=== PATIENT | female | born 2000 | race African-American/Black ===

== ENCOUNTER 2021-11-14 18:21 | Observation (INO) | payer OTHER, MEDICAID, SELFPAY ==
[2021-11-14] VITALS (8 sets, daily range): BP systolic 92–118; BP diastolic 53–81; PULSE 81–112; TEMP 36.7; BMI 26.7
--- NOTE | ~2021-11-14 | US_ITS ---
EXAMINATION: US OB limited w BPP DATE: 11/15/2021 08:14 INDICATION: Oligohydramnios. Third trimester. TECHNIQUE: Real-time pelvic ultrasound was performed. COMPARISON: None. FINDINGS: There is a single living fetus in vertex presentation. The placenta is anterior. heart rate is 150 beats per minute (bpm). The amniotic fluid index is 8.5 cm, which is normal. Biophysical profile performed by the technologist: breathing (30 sec sustained breathing in 30 minutes): 2 out of 2 movement (3 gross body movements in 30 minutes): 2 out of 2 tone (one episode of vawgyzw-ntixltkfs-tmrugvo limb movement): 2 out of 2 Amniotic fluid pocket (2 cm): 2 out of 2 Total score: 8 out of 8 IMPRESSION: 1. Single living fetus in vertex presentation. 2. Biophysical profile 8 out of 8. 3. Normal amniotic fluid index. Reviewed, dictated and finalized at location B.
[2021-11-14 19:37] LABS: Basophils Percent Auto 0.3 % (0.2-1.2); Eosinophils Absolute Auto 0.1 K/mm3 (0-0.3); Eosinophils Percent Auto 1.1 % (0-4.4); Hematocrit 28.7 % (37.0-47.0); Hemoglobin 8.7 g/dL (12.0-15.0); Immature Granulocyte Absolute 0.03 K/mm3 (0.00-0.031); Immature Granulocyte Percent A 0.4 % (0-0.5); Lymphocytes Absolute Auto 2.31 K/mm3 (0.9-3.2); Lymphocytes Percent Auto 30.6 % (18.3-44.2); Mean Corpuscular HGB Conc 30.3 g/dl (32-36); Mean Corpuscular Volume 75.7 fl (80-100); Mean Platelet Volume 10.3 fl (7.4-10.4); Monocytes Absolute Auto 0.7 K/mm3 (0.1-0.6); Monocytes Percent Auto 9.5 % (2.6-8.5); Neutrophils Absolute Auto 4.4 K/mm3 (1.3-6.7); Neutrophils Percent Auto 58.1 % (45.5-73.1); Platelet Count Result 300 k/mm3 (150-375); Red Blood Count 3.79 M/mm3 (4.2-5.4); Red Cell Distribution Width 15.2 % (11.5-14.5); White Blood Count 7.5 K/mm3 (4.5-10.0)
[2021-11-14] MEDS: DEXTROSE 5%/0.45% SOD CHL 1,000 ML 999 ML IV CONT (19:50)
[2021-11-14 19:52] LABS: Alanine Aminotransferase 73 U/L (6-35); Albumin Level 3.7 g/dL (3.5-5.1); Alkaline Phosphatase 193 U/L (38-126); Anion Gap 5 mmol/L (8-16); Aspartate Amino Transferase 64 U/L (14-36); Bilirubin,Total 0.8 mg/dL (0.2-1.3); Blood Urea Nitrogen 5 mg/dL (7-17); Calcium 8.7 mg/dL (8.4-10.2); Carbon Dioxide 21 mmol/L (22-30); Chloride 108 mmol/L (98-107); Estimated Glomerular Filt Rate > 60; Glucose 78 mg/dL (65-110); Potassium 3.7 mmol/L (3.4-5.0); Sodium 134 mmol/L (137-145)
--- NOTE | 2021-11-14 20:06 | OBADM ---
This patient, Trice Robertson, admitted to the OB room OB Post 113 for observation. Patient/family oriented to hospital policies and general routines including ID bracelet, bed and alarms, visiting hours, pain management, procedures, bathroom and other care routines, personal items, smoking policy, room service/diet, and visiting hours. Patient/Family are encouraged to report perceived risks to care and to ask questions if they do not understand what they are told or what they should do.
[2021-11-14] MEDS: LACTATED RINGERS 1,000 ML 150 ML IV CONT (21:01)
--- NOTE | 2021-11-14 21:35 | PC.NURSE ---
Addendum entered by Maria D Bruno RN 11/15/21 01:21: per Dr. Gill- if P/C ratio >0.2- start 24 urine collection. Original Note: 2022- Called Dr. Gill- Labs reviewed- T reviewed. orders received to obtain P/C ratio, [facility] labs in AM, Venofer 300mg infusion. will continue to monitor pt and call if questions/concerns.
[2021-11-14 21:43] LABS: Creatinine Urine 23.4 mg/dL; Total Protein Urine Random 14 mg/dL
--- NOTE | 2021-11-14 22:32 | PC.NURSE ---
2210- called Dr. Gill- labs reviewed. orders received for UA and urine culture. will continue with plan of care and call if questions/concerns.
[2021-11-14 23:00] LABS: Appearance Urine Clear (Clear); Bilirubin Urine Negative (Negative); Color Urine Yellow (Yellow); Glucose Urine UA 2+ mg/dL (Negative); Ketones Urine 2+ mg/dL (Negative); Leukocyte Esterase Ur 1+ LEU/UL (Negative); Nitrate Urine Negative (Negative); Protein Urine Negative (Negative); Urobilinogen Urine 0.2 mg/dL (<2.0)
[2021-11-14 23:02] LABS: Bacteria Urine Trace /hpf; Mucus Urine Rare /lpf; RBC Urine 0-2 /hpf (0-2); Squamous Epithelial Cell Urine Rare /hpf (Few); WBC Urine 0-3 /hpf
[2021-11-14 23:05] LABS: Add Urine Microscopic? YES; Blood Urine Trace-Intact (Negative)
[2021-11-15] VITALS (10 sets, daily range): BP systolic 95–124; BP diastolic 50–85; PULSE 87–111; TEMP 36.4–36.8
--- NOTE | 2021-11-15 01:20 | PC.NURSE ---
pt resting quietly. no complaints at this time.
--- NOTE | 2021-11-15 02:55 | PC.NURSE ---
Dr. Gill updated on pt status and lab results. no new orders received. will continue with plan of care and call if questions/concerns.
[2021-11-15 05:26] LABS: Basophils Percent Auto 0.3 % (0.2-1.2); Eosinophils Absolute Auto 0.1 K/mm3 (0-0.3); Eosinophils Percent Auto 1.3 % (0-4.4); Hematocrit 27.8 % (37.0-47.0); Hemoglobin 8.4 g/dL (12.0-15.0); Immature Granulocyte Absolute 0.04 K/mm3 (0.00-0.031); Immature Granulocyte Percent A 0.6 % (0-0.5); Lymphocytes Absolute Auto 1.54 K/mm3 (0.9-3.2); Lymphocytes Percent Auto 22.4 % (18.3-44.2); Mean Corpuscular HGB Conc 30.2 g/dl (32-36); Mean Corpuscular Hemoglobin 23.1 pg (26-34); Mean Corpuscular Volume 76.4 fl (80-100); Mean Platelet Volume 9.9 fl (7.4-10.4); Monocytes Absolute Auto 0.5 K/mm3 (0.1-0.6); Monocytes Percent Auto 6.7 % (2.6-8.5); Neutrophils Absolute Auto 4.7 K/mm3 (1.3-6.7); Neutrophils Percent Auto 68.7 % (45.5-73.1); Platelet Count Result 279 k/mm3 (150-375); Red Blood Count 3.64 M/mm3 (4.2-5.4); Red Cell Distribution Width 15.3 % (11.5-14.5); White Blood Count 6.9 K/mm3 (4.5-10.0)
[2021-11-15 05:36] LABS: Alanine Aminotransferase 71 U/L (6-35); Albumin Level 3.4 g/dL (3.5-5.1); Alkaline Phosphatase 167 U/L (38-126); Anion Gap 6 mmol/L (8-16); Aspartate Amino Transferase 77 U/L (14-36); Bilirubin,Total 0.8 mg/dL (0.2-1.3); Blood Urea Nitrogen 3 mg/dL (7-17); Calcium 8.8 mg/dL (8.4-10.2); Carbon Dioxide 22 mmol/L (22-30); Chloride 109 mmol/L (98-107); Estimated CRCL calculation 137 ml/min; Estimated Glomerular Filt Rate > 60; Glucose 87 mg/dL (65-110); Potassium 3.6 mmol/L (3.4-5.0); Sodium 137 mmol/L (137-145); Uric Acid 3.1 mg/dL (2.5-7.5)
--- NOTE | 2021-11-15 06:55 | PM.IMHP ---
H&P: HPI History of Present Illness Date/Time: 11/15/21 06:55 Chief Complaint: nausea and vomiting. Narrative: Trice is a 21yo G1 at 36.6 who was admitted last night from the office for a week of N/V. She also had an US yesterday with an GIL of 5.3, was previously 8. BPP yesterday 01/08. Normal growth. has been uncomplicated other than this. Her BPs have always been normal, but she had a PC ratio of 0.6 and mildly elevated LFTs. Denies WHITLOCK/BV/RUQ pain. Denies urinary sx. After fluids her N/V is improved and she is tolerating clears. Review of Systems Review of Systems: All systems reviewed & are unremarkable except as noted in HPI and below (HPI) [facility] Family History Family History (Updated 11/07/21 @ 12:52 by Kat Arteaga RN) Other No pertinent family history Social History Social History Substance use: never Spiritual care concerns: No Meds Home Medications and Allergies Home Medications Medication Instructions Recorded Confirmed Type ferrous sulfate 11/07/21 History prenat.vits,pam,dhw-xwga-spsvg 1 tablet PO DAILY 11/07/21 11/15/21 History Allergies Allergy/AdvReac Type Severity Reaction Status Date / Time No Known Allergies Allergy Verified 11/14/21 23:04 Vital Signs Vital Signs - 24 hr 11/14/21 18:52 11/14/21 19:56 11/14/21 20:00 Temperature Pulse Rate 112 H 87 81 Blood Pressure 116/71 112/66 110/65 Oxygen Delivery 11/14/21 20:15 11/14/21 20:30 11/14/21 20:45 Temperature Pulse Rate 81 101 H 85 Blood Pressure 114/75 105/81 118/71 Oxygen Delivery 11/14/21 23:59 11/15/21 03:12 11/14/21 20:08 Temperature Pulse Rate 103 H 94 Blood Pressure 92/53 L 116/73 Oxygen Delivery Room Air 11/14/21 21:15 11/15/21 00:00 11/15/21 03:12 Temperature 98.1 F 97.8 F 98.3 F Pulse Rate Blood Pressure Oxygen Delivery Exam Const: General: no acute distress Resp: Effort & Inspection: normal respiratory effort Auscultation: clear to auscultation bilaterally Cardio: Rate: regular rate Rhythm: regular rhythm GI: GI Palp: Yes Soft to palpation Extrem: General: normal to inspection H&P: Results Labs Labs: Short CBC 11/14/21 11/15/21 Range/Units 19:22 05:18 WBC 7.5 6.9 (4.5-10.0) K/mm3 Hgb 8.7 L 8.4 L (12.0-15.0) g/dL Hct 28.7 L 27.8 L (37.0-47.0) % Plt Count 300 279 (150-375) k/mm3 [facility] 11/14/21 11/15/21 19:22 05:18 Sodium 134 L 137 Potassium 3.7 3.6 Chloride 108 H 109 H Carbon Dioxide 21 L 22 BUN 5 L 3 L Creatinine 0.50 L 0.50 L Glucose 78 87 Calcium 8.7 8.8 Liver Function 11/14/21 11/15/21 Range/Units 19:22 05:18 Total Bilirubin 0.8 0.8 (0.2-1.3) mg/dL AST 64 H 77 H (14-36) U/L ALT 73 H 71 H (6-35) U/L Alkaline Phosphatase 193 H 167 H (38-126) U/L Albumin 3.7 3.4 L (3.5-5.1) g/dL Urine 11/14/21 Range/Units 21:13 Urine Color Yellow (Yellow) Urine Appearance Clear (Clear) Urine pH 7.0 (5.0-9.0) Ur Specific [place] 1.010 (1.001-1.035) Urine Protein Negative (Negative) mg/dL Urine Glucose (UA) 2+ H (Negative) mg/dL Assessment and Plan Assessment and plan (1) Elevated LFTs: Code(s): R79.89 - Other specified abnormal findings of blood chemistry Status: Acute (2) Nausea and vomiting: Code(s): R11.2 - Nausea with vomiting, unspecified Status: Acute (3) Anemia affecting : Code(s): O99.019 - Anemia complicating , unspecified trimester Status: Acute Additional Plan FHT category 1 Repeat BPP and GIL this am s/p venofer x1, repeat this pm hepatitis panel 24 hour urine in progress discussed possible atypical PreE- will likely be delivering this stay will need cervidil, discussed
[2021-11-15 08:15] LABS: Hepatitis B Surface Antigen Negative (Negative)
[2021-11-15 08:21] LABS: HAV RESULT Negative (Negative); Hepatitis B Core IgM Result Negative (Negative)
[2021-11-15 08:32] LABS: Hepatitis C Virus Antibody Negative (Negative)
--- NOTE | 2021-11-15 18:37 | PC.NURSE ---
pt resting quietly. no complaints.
[2021-11-15 21:37] LABS: Collection Time Urine 24 HOURS
[2021-11-15 21:38] LABS: Total Volume 24 Hour Urine 5200 ml
[2021-11-15 21:47] LABS: Creatinine Clearance Urine 146.9 ml/min (75-125); Creatinine Urine 21.6 mg/dL; Patient Weight 165 Lbs
--- NOTE | 2021-11-15 23:13 | PC.NURSE ---
pt called out asking for snack. snacks taken to pt. pt doing good with no complaints. pt states that baby is very active right now. pt informed to call out if questions/concerns.
[2021-11-16 00:20] VITALS: BP 98/53; PULSE 99
[2021-11-16 04:18] VITALS: BP 103/66; PULSE 75
[2021-11-16 05:20] VITALS: TEMP 36.6
[2021-11-16 05:27] LABS: Basophils Percent Auto 0.5 % (0.2-1.2); Eosinophils Absolute Auto 0.1 K/mm3 (0-0.3); Eosinophils Percent Auto 2.1 % (0-4.4); Hematocrit 26.3 % (37.0-47.0); Immature Granulocyte Absolute 0.02 K/mm3 (0.00-0.031); Immature Granulocyte Percent A 0.3 % (0-0.5); Lymphocytes Absolute Auto 1.74 K/mm3 (0.9-3.2); Lymphocytes Percent Auto 30.2 % (18.3-44.2); Mean Corpuscular HGB Conc 30.4 g/dl (32-36); Mean Corpuscular Hemoglobin 23.1 pg (26-34); Mean Platelet Volume 10.2 fl (7.4-10.4); Monocytes Absolute Auto 0.6 K/mm3 (0.1-0.6); Monocytes Percent Auto 10.7 % (2.6-8.5); Neutrophils Absolute Auto 3.2 K/mm3 (1.3-6.7); Neutrophils Percent Auto 56.2 % (45.5-73.1); Platelet Count Result 266 k/mm3 (150-375); Red Blood Count 3.46 M/mm3 (4.2-5.4); Red Cell Distribution Width 15.5 % (11.5-14.5); White Blood Count 5.8 K/mm3 (4.5-10.0)
[2021-11-16 05:39] LABS: Alanine Aminotransferase 73 U/L (6-35); Albumin Level 3.5 g/dL (3.5-5.1); Alkaline Phosphatase 169 U/L (38-126); Anion Gap 5 mmol/L (8-16); Aspartate Amino Transferase 76 U/L (14-36); Bilirubin,Total 0.6 mg/dL (0.2-1.3); Calcium 8.4 mg/dL (8.4-10.2); Carbon Dioxide 23 mmol/L (22-30); Chloride 108 mmol/L (98-107); Estimated CRCL calculation 166 ml/min; Estimated Glomerular Filt Rate > 60; Glucose 81 mg/dL (65-110); Potassium 3.7 mmol/L (3.4-5.0); Sodium 136 mmol/L (137-145); Uric Acid 3.3 mg/dL (2.5-7.5)
--- NOTE | 2021-11-16 05:57 | PC.NURSE ---
0520- pt resting quietly, no complaints at this time.
[2021-11-16 06:10] LABS: Blood Urea Nitrogen < 2 mg/dL (7-17)
--- NOTE | 2021-11-16 08:53 | P.PNOB_ITS ---
OB - PN: Subj Subjective Date/time seen: 11/16/21 08:53 patient denies any headache, blurry vision, epigastric pain. She denies any nausea vomiting. She denies any chest pain shortness of breath. She denies any fevers or chills. She reports good movement. Patient comments: no complaints, pain well controlled, tolerating diet and flatus present OB - PN: Obj Data Labs CBC & Chem 7: 11/16/21 05:19 11/16/21 05:19 Labs: Laboratory Results - last 24 hr 11/15/21 11/16/21 11/16/21 21:24 05:19 05:19 WBC 5.8 RBC 3.46 L Hgb 8.0 L Hct 26.3 L MCV 76.0 L MCH 23.1 L MCHC 30.4 L RDW 15.5 H Plt Count 266 MPV 10.2 Immature Gran % (Auto) 0.3 Neut % (Auto) 56.2 Lymph % (Auto) 30.2 [place] % (Auto) 10.7 H Eos % (Auto) 2.1 Baso % (Auto) 0.5 Lymph # (Auto) 1.74 [place] # (Auto) 0.6 Eos # (Auto) 0.1 Baso # (Auto) 0.0 Abs Immat Gran (auto) 0.02 Absolute Neuts (auto) 3.2 Absolute Nucleated RBC 0.0 Nucleated RBC % 0.0 Sodium 136 L Potassium 3.7 Chloride 108 H Carbon Dioxide 23 Anion Gap 5 L BUN < 2 L Creatinine 0.40 L Estim Creat Clear Calc 166 Estimated GFR > 60 Glucose 81 Uric Acid 3.3 Calcium 8.4 Total Bilirubin 0.6 AST 76 H ALT 73 H Alkaline Phosphatase 169 H Total Protein 7.0 Albumin 3.5 U Random Total Protein Ur 24 Hour Volume 5200 Urine Creatinine 21.6 Creatinine Clearance 146.9 H Ur Total Protein 24 Hr 5 OB - PN A/P Assessment and Plan (1) Anemia affecting : Code(s): O99.019 - Anemia complicating , unspecified trimester Status: Acute (2) Nausea and vomiting: Code(s): R11.2 - Nausea with vomiting, unspecified Status: Acute (3) Elevated LFTs: Code(s): R79.89 - Other specified abnormal findings of blood chemistry Status: Acute Plan This patient is a 21-year-old 1 female at 36 weeks gestation who presented with nausea vomiting and was found have elevated liver enzymes. She has been followed. Her liver enzymes are stable. Her 24 hour protein was normal. Her status has been reassuring throughout the stay. She has marked anemia. We believe that atypical preeclampsia been ruled out at this point. She is going to follow-up tomorrow. Delivery does not need to occur in the short term. Time Spent With Patient Time: Total time spent is greater than 50% in coordination of care (as documented) at patient's floor/unit and/or counseling patient: Exam Const: General: cooperative, healthy appearing, comfortable and no acute distress Resp: Auscultation: no crackles, no rales, no rhonchi and no wheezes Cardio: Rhythm: regular rhythm Heart sounds: no click and no murmurs GI: Inspection: non-distended Auscultation: normal bowel sounds Extrem: General: normal to inspection, no pedal edema and no calf tenderness
[2021-11-16 09:00] VITALS: BP 109/69; PULSE 90; RESP 16; TEMP 36.3
== END 2021-11-16 10:45 | disposition home or self-care (01) ==
PROVIDERS: Admitting Provider Obstetrics & Gynecology; Visit Provider Obstetrics & Gynecology
DX: O99.013 Anemia complicating pregnancy, third trimester (principal); O26.893 Other specified pregnancy related conditions, third trimester; R11.2 Nausea with vomiting, unspecified; Z3A.36 36 weeks gestation of pregnancy; R79.89 Other specified abnormal findings of blood chemistry
CPT/HCPCS: 36415; 76815; 76819; 80053; 80074; 81001; 81050; 82570; 82575; 84156; 84550; 85025; 96361; 96365; 96366; G0378; G0379; J1756; J7120

== ENCOUNTER 2021-12-11 17:29 | Inpatient (IN) | payer OTHER, MEDICAID, SELFPAY ==
[2021-12-11] VITALS (62 sets, daily range): BP systolic 90–155; BP diastolic 41–106; PULSE 75–216; TEMP 36.7–37.3; O2SAT 88–100
--- OUTSIDE RECORDS SUMMARY | 2021-12-11 17:39 | XMS_ITS | Encounter Summary ---
:2000 Author Reason for Visit None recorded. Assessment and Plan 1. Placenta circumvallata ? US, obstetric, follow-up Discussion Note: None recorded.Patient educational handouts: No information available. Plan of Care Reminders Provider Appointments None recorded. ? ? Lab None recorded. ? ? Referral None recorded. ? ? Procedures None recorded. ? ? Surgeries None recorded. ? ? Imaging US, Obstetric, Follow-up 09/19/2021 [place] Medications No Medications Reported Medications Administered None recorded. Vitals None recorded. Results Lab Results None recorded. Allergies Code Code System Name Reaction Severity Onset NKDA ? ? ? Problems Name Status Onset Date Source ? Prediabetes Active 07/02/2021 ? Active 07/25/2021 ? Elevated Liver Enzymes Level Active 11/18/2021 ? Placenta Circumvallata Active ? ? Procedures Date Name Performed by ? 08/22/2021 US, Obstetric, Follow-up [place] [address] [place] [address] ([address]) 09/19/2021 US, Obstetric, Follow-up [place] [address] [place] [address] ([address]) Vaccine List None recorded. Social History Tobacco Smoking Status Never Smoker What is the highest grade or level of school you have comple emeli or [id number] the highest degre
--- OUTSIDE RECORDS SUMMARY | 2021-12-11 17:39 | XMS_ITS | Encounter Summary ---
:2000 Author Reason for Visit OB visit Assessment and Plan Assessment Note Patient is ___weeks . Discussed plan. Discussion Note: None recorded.Patient educational handouts: No information available. Plan of Care Reminders Provider Appointments None recorded. ? ? Lab None recorded. ? ? Referral None recorded. ? ? Procedures None recorded. ? ? Surgeries None recorded. ? ? Imaging None recorded. ? ? Medications No Medications Reported Medications Administered None recorded. Vitals Height Weight BMI Blood Pressure 5 ft 5 in 161 lbs 26.8 kg/m2 101/72 mm[Hg] Results Lab Results None recorded. Allergies Code Code System Name Reaction Severity Onset NKDA ? ? ? Problems Name Status Onset Date Source ? Prediabetes Active 07/02/2021 ? Active 07/25/2021 ? Elevated Liver Enzymes Level Active 11/18/2021 ? Placenta Circumvallata Active ? ? Procedures None recorded. Vaccine List None recorded. Social History Tobacco Smoking Status Never Smoker What is the highest grade or level of school you have comple emeli or [id number] the highest degree you have received? What type of diet are you following? REGULAR Are you able to walk? YESWOREST Has tobacco cessation counseling been provided? N Have you used IV drugs? N Are you blind or do you have difficulty seeing? N Do you have smoke and carbon monoxide detectors in your home ? Y In the 14 days before symptom onset, have you had close c
--- OUTSIDE RECORDS SUMMARY | 2021-12-11 17:39 | XMS_ITS | Encounter Summary ---
[...] recorded. ? ? Imaging US, Obstetric, Follow-up 2021 [place] Medications No Medications Reported Medications Administered None recorded. Vitals None recorded. Results Lab Results None recorded. Allergies Code Code System Name Reaction Severity Onset NKDA ? ? ? Problems Name Status Onset Date Source ? Prediabetes Active 07/02/2021 ? Active 07/25/2021 ? Elevated Liver Enzymes Level Active 11/18/2021 ? Placenta Circumvallata Active ? ? Procedures Date Name Performed by ? 2021 US, Obstetric, Follow-up [place] [address] [place] [address] ([address]) Vaccine List None recorded. Social History Tobacco Smoking Status Never Smoker What is the highest grade or level of school you have comple emeli or [id number] the highest degree you have received? What type of diet are you following? REGULAR Are you able to walk? YESWOREST Has tobacco cessation counseling been provided? N Have you used IV drugs? N
--- OUTSIDE RECORDS SUMMARY | 2021-12-11 17:39 | XMS_ITS | Encounter Summary ---
:1998 Author Reason for Visit None recorded. Assessment and Plan 1. Oligohydramnios ? US, obstetric, follow-up ? US, obstetric, biophysical profile + non-stress test Discussion Note: None recorded.Patient educational handouts: No information available. Plan of Care Reminders Provider Appointments None recorded. ? ? Lab None recorded. ? ? Referral None recorded. ? ? Procedures None recorded. ? ? Surgeries None recorded. ? ? Imaging US, Obstetric, Follow-up 11/14/2021 [place] ? US, Obstetric, Biophysical Profile + [place] Non-stress Test Medications No Medications Reported Medications Administered None [...] Performed by ? 2021 US, Obstetric, Follow-up [place] [address] [place] [address] ([address]) 11/14/2021 US, Obstetric, Follow-up [place] [address] [place] [address] ([address])
--- OUTSIDE RECORDS SUMMARY | 2021-12-11 17:39 | XMS_ITS | Encounter Summary ---
:1998 Author Reason for Visit OB visit Assessment and Plan Assessment Note Patient is ___weeks . Discussed plan. 1. Routine care Discussion Note: None recorded.Patient educational handouts: No information available. Plan of Care Reminders Provider Appointments None recorded. ? ? Lab None recorded. ? ? Referral None recorded. ? ? Procedures None recorded. ? ? Surgeries None recorded. ? ? Imaging None recorded. ? ? Medications No Medications Reported Medications Administered None recorded. Vitals Height Weight BMI Blood Pressure 5 ft 5 in 165 lbs 27.5 kg/m2 113/78 mm[Hg] Results Lab Results None recorded. Allergies Code Code System Name Reaction Severity Onset NKDA ? ? ? Problems Name Status Onset Date Source ? Prediabetes Active 07/02/2021 ? Active 07/25/2021 ? Elevated Liver Enzymes Level Active 11/18/2021 ? Placenta Circumvallata Active ? ? Procedures Date Name Performed by ? 2021 US, Obstetric, Follow-up [place] [address] [place] [address] ([address]) Vaccine List None recorded. Social History Tobacco Smoking Status Never Smoker What is the highest grade or level of school you have comple emeli or [id number] the highest degree you have received? What type of diet are you following? REGULAR
--- OUTSIDE RECORDS SUMMARY | 2021-12-11 17:39 | XMS_ITS ---
:2000 Author Care Team Providers Name Role Phone Dionna Gill Primary Care Provider Unavailable Allergies Code Code System Name Reaction Severity Status Onset NKDA ? Medications Name Status Start Date Stop Date ? ? ID NOW COVID-19 Test Kit Completed ? 022 TEST DIRECTED TODAY Problems Name Status Onset Date Source ? Prediabetes Active 07/02/2021 ? Active 07/25/2021 ? Elevated Liver Enzymes Level Active 11/18/2021 ? Placenta Circumvallata Active ? ? Procedures Date Name Performed by ? 06/28/2021 US, Obstetric, Limited [place] [address] [place] [address] ([address]) 07/25/2021 US, Obstetric, 2Nd or 3Rd Trimester [facility] [address] [place] [address] ([address]) 07/25/2021 , Obstetric, Transvaginal [place] [address] [place] [address] ([address]) 08/22/2021 , Obstetric, Follow-up [place] [address] [place] [address] ([address]) 09/19/2021 , Obstetric, Follow-up [place] [address] [place] [address] [phone]
--- OUTSIDE RECORDS SUMMARY | 2021-12-11 17:39 | XMS_ITS | Encounter Summary ---
:2000 Author Reason for Visit OB visit Assessment and Plan 1. Routine care Discussion Note: None recorded.Patient [...] BMI Blood Pressure 5 ft 5 in 162 lbs 27 kg/m2 114/81 mm[Hg] Results Lab Results None recorded. Allergies Code Code System Name Reaction Severity Onset NKDA ? ? ? Problems Name Status Onset Date Source ? Prediabetes Active 07/02/2021 ? Active 07/25/2021 ? Elevated Liver Enzymes Level Active 11/18/2021 ? Placenta Circumvallata Active ? ? Procedures Date Name Performed by ? 2021 US, Obstetric, Follow-up [place] [address] [place] [address] ([address]) 11/14/2021 US, Obstetric, Follow-up [place] [address] [place] [address] ([address]) 11/14/2021 US, Obstetric, Biophysical Profile + [place] Non-stress Test [address]
--- OUTSIDE RECORDS SUMMARY | 2021-12-11 17:39 | XMS_ITS | Encounter Summary ---
:2000 Author Reason for Visit OB visit Assessment and Plan 1. Routine care 2. Placenta circumvallata Discussion Note: None recorded.Patient educational handouts: No information available. Plan of Care Reminders Provider Appointments None recorded. ? ? Lab None recorded. ? ? Referral None recorded. ? ? Procedures None recorded. ? ? Surgeries None recorded. ? ? Imaging None recorded. ? ? Medications No Medications Reported Medications Administered None recorded. Vitals Height Weight BMI Blood Pressure 5 ft 5 in 163 lbs 27.1 kg/m2 117/80 mm[Hg] Results Lab Results None recorded. Allergies Code Code System Name Reaction Severity Onset NKDA ? ? ? Problems Name Status Onset Date Source ? Prediabetes Active 07/02/2021 ? Active 07/25/2021 ? Elevated Liver Enzymes Level Active 11/18/2021 ? Placenta Circumvallata Active ? ? Procedures Date Name Performed by ? 08/22/2021 US, Obstetric, Follow-up [place] [address] [place] [address] ([address]) 09/19/2021 US, Obstetric, Follow-up [place] [address] [place] [address] ([address]) Vaccine List None recorded. Social History Tobacco Smoking Status Never Smoker
--- OUTSIDE RECORDS SUMMARY | 2021-12-11 17:39 | XMS_ITS | Encounter Summary ---
:2000 Author Reason for Visit OB visit Assessment and Plan 1. Routine care 2. Elevated liver enzymes level Discussion Note: None recorded.Patient educational handouts: No information available. Plan of Care Reminders Provider Appointments None recorded. ? ? Lab None recorded. ? ? Referral None recorded. ? ? Procedures None recorded. ? ? Surgeries None recorded. ? ? Imaging None recorded. ? ? Medications No Medications Reported Medications Administered None recorded. Vitals Height Weight BMI Blood Pressure 5 ft 5 in 164 lbs 27.3 kg/m2 107/78 mm[Hg] Results Lab Results None recorded. Allergies Code Code System Name Reaction Severity Onset NKDA ? ? ? Problems Name Status Onset Date Source ? Prediabetes Active 07/02/2021 ? Active 07/25/2021 ? Elevated Liver Enzymes Level Active 11/18/2021 ? Placenta Circumvallata Active ? ? Procedures Date Name Performed by ? 2021 US, Obstetric, Follow-up [place] [address] [place] [address] ([address]) 11/14/2021 US, Obstetric, Follow-up [place] [address] [place] [address] ([address]) 11/14/2021 US, Obstetric, Biophysical Profile + [place] Non-stress Test
--- OUTSIDE RECORDS SUMMARY | 2021-12-11 17:39 | XMS_ITS | Encounter Summary ---
[...] ft 5 in 164 lbs 27.3 kg/m2 119/79 mm[Hg] Results Lab Results None recorded. Allergies Code Code System Name Reaction Severity Onset NKDA ? ? ? Problems Name Status Onset Date Source ? Prediabetes Active 07/02/2021 ? Active 07/25/2021 ? Elevated Liver Enzymes Level Active 11/18/2021 ? Placenta Circumvallata Active ? ? Procedures Date Name Performed by ? 09/19/2021 US, Obstetric, Follow-up [place] [address] [place] [address] ([address]) Vaccine List None recorded. Social History Tobacco Smoking Status Never Smoker What is the highest grade or level of school you have comple emeli or [id number] the highest degree you have received? What type of diet are you following? REGULAR Are you able to walk? YESWOREST Has tobacco cessation counseling been provided? N
[2021-12-11] MEDS: LACTATED RINGERS 1,000 ML 125 ML IV CONT ×2 (18:50→19:44)
[2021-12-11 18:55] LABS: Basophils Percent Auto 0.5 % (0.2-1.2); Eosinophils Absolute Auto 0.1 K/mm3 (0-0.3); Eosinophils Percent Auto 1.5 % (0-4.4); Hematocrit 34.9 % (37.0-47.0); Hemoglobin 10.9 g/dL (12.0-15.0); Immature Granulocyte Absolute 0.02 K/mm3 (0.00-0.031); Immature Granulocyte Percent A 0.3 % (0-0.5); Lymphocytes Absolute Auto 1.47 K/mm3 (0.9-3.2); Lymphocytes Percent Auto 24.1 % (18.3-44.2); Mean Corpuscular HGB Conc 31.2 g/dl (32-36); Mean Corpuscular Hemoglobin 24.1 pg (26-34); Mean Platelet Volume 10.7 fl (7.4-10.4); Monocytes Absolute Auto 0.5 K/mm3 (0.1-0.6); Neutrophils Percent Auto 65.6 % (45.5-73.1); Platelet Count Result 264 k/mm3 (150-375); Red Blood Count 4.53 M/mm3 (4.2-5.4); Red Cell Distribution Width 21.4 % (11.5-14.5); White Blood Count 6.1 K/mm3 (4.5-10.0)
--- NOTE | 2021-12-11 19:01 | LDADM ---
This patient, Trice Robertson, was admitted to Labor/Delivery/Recovery 105 on 12/11/21 at 17:29. Plans for labor, pain management and were discussed with patient. Patient/family oriented to hospital policies and general routines including ID bracelet, bed and alarms, visiting hours, pain management, procedures, bathroom and other care routines, personal items, smoking policy, room service/diet and guest tray routines, infant security routines, and visiting hours. Patient/Family are encouraged to report perceived risks to care and to ask questions if they do not understand what they are told or what they should do. See OBIX for further documentation.
--- NOTE | 2021-12-11 19:08 | PM.IMHP ---
H&P: HPI History of Present Illness Date/Time: 12/11/21 19:08 Chief Complaint: labor Narrative: Trice is a 21yo G1 at 40.5 who was scheduled for IOL tonight and presented in active labor, 7cm. complicated by circumvallate placenta, anemia, and elevated LFTs of unknown origin, PreE ruled out. GBS neg. Review of Systems Review of Systems: All systems reviewed & are unremarkable except as noted in HPI and below PMFSH Family History Family History (Updated 11/07/21 @ 12:52 by Kat Arteaga RN) Other No pertinent family history Social History Social History Substance use: never Spiritual care concerns: No Meds Home Medications and Allergies Home Medications Medication Instructions Recorded Confirmed Type prenat.vits,pam,tpk-fvde-dethf 1 tablet PO DAILY 11/07/21 11/15/21 History Allergies Allergy/AdvReac Type Severity Reaction Status Date / Time No Known Allergies Allergy Verified 11/14/21 23:04 Vital Signs Vital Signs - 24 hr 12/11/21 18:11 12/11/21 18:15 12/11/21 18:30 Temperature Pulse Rate 96 92 178 H Blood Pressure 128/89 142/85 H 117/92 H 12/11/21 18:45 12/11/21 18:52 12/11/21 19:00 Temperature 98.1 F Pulse Rate 94 89 Blood Pressure 115/85 129/103 H Exam Const: General: no acute distress Resp: Effort & Inspection: normal respiratory effort Auscultation: clear to auscultation bilaterally Cardio: Rate: regular rate Rhythm: regular rhythm GI: GI Palp: Yes Soft to palpation Extrem: General: normal to inspection H&P: Results Labs Labs: Short CBC 12/11/21 Range/Units 18:48 WBC 6.1 (4.5-10.0) K/mm3 Hgb 10.9 L (12.0-15.0) g/dL Hct 34.9 L (37.0-47.0) % Plt Count 264 (150-375) k/mm3 Assessment and Plan Additional Plan Active labor AROM clear /- GBS neg pitocin if needed repeat LFTs. FHT moderate variability, with accels and early decelerations.
--- NOTE | 2021-12-11 19:15 | WPDANESEPP ---
Anes - Eval Pre Procedure Procedure: Labor epidural Date/Time: 12/11/21 19:15 Surgeon: Jairo Preop Diagnosis: Abd pain with contractions Pre Op Diagnosis: Induction of Labor Patient Data Age: 21 Gender: F Height: Weight: Last Vital Signs Temp 98.1 F 12/11/21 18:52 Pulse 89 12/11/21 19:00 BP 129/103 H 12/11/21 19:00 O2 Del Method Room Air 12/11/21 19:00 Allergies Allergy/AdvReac Type Severity Reaction Status Date / Time No Known Allergies Allergy Verified 11/14/21 23:04 Home Medications Medication Instructions Recorded Confirmed Type prenat.vits,pam,eyp-[id number] 1 tablet PO DAILY 11/07/21 11/15/21 History Laboratory Tests 12/11/21 12/11/21 18:48 18:48 WBC 6.1 K/mm3 K/mm3 (4.5-10.0) RBC 4.53 M/mm3 M/mm3 (4.2-5.4) Hgb 10.9 g/dL L g/dL (12.0-15.0) Hct 34.9 % L % (37.0-47.0) MCV 77.0 fl L fl (80-100) MCH 24.1 pg L pg (26-34) MCHC 31.2 g/dl L g/dl (32-36) RDW 21.4 % H % (11.5-14.5) Plt Count 264 k/mm3 k/mm3 (150-375) MPV 10.7 fl H fl (7.4-10.4) Immature Gran % (Auto) 0.3 % % (0-0.5) Neut % (Auto) 65.6 % % (45.5-73.1) Lymph % (Auto) 24.1 % % (18.3-44.2) [place] % (Auto) 8.0 % % (2.6-8.5) Eos % (Auto) 1.5 % % (0-4.4) Baso % (Auto) 0.5 % % (0.2-1.2) Lymph # (Auto) 1.47 K/mm3 K/mm3 (0.9-3.2) [place] # (Auto) 0.5 K/mm3 K/mm3 (0.1-0.6) Eos # (Auto) 0.1 K/mm3 K/mm3 (0-0.3) Baso # (Auto) 0.0 K/mm3 K/mm3 (0.0-0.1) Abs Immat Gran (auto) 0.02 K/mm3 K/mm3 (0.00-0.031) Absolute Neuts (auto) 4.0 K/mm3 K/mm3 (1.3-6.7) Absolute Nucleated RBC 0.0 K/mm3 K/mm3 (0.0-0.012) Nucleated RBC % 0.0 % % (0.0-0.2) RPR Pending Patient hx anesthesia problems: none Family hx anesthesia problems: none Results Review: All pre-operative results and documents have been reviewed as part of the pre-operative evaluation. [facility] Past Medical History Medical History Anemia affecting Nausea and vomiting Overweight (BMI 25.0-29.9) Family History Family History Other No pertinent family history Social History Social History Substance use: never Spiritual care concerns: No Exam Day of Procedure 12/11/21 19:15 Patient weight: overweight Airway: Mallampati scale class II
[2021-12-11] MEDS: OXYTOCIN 30 UNITS/NS 500 ML 30 UNITS/500 ML BAG 6 UNITS IV CONT (20:57)
[2021-12-11 21:40] LABS: Alanine Aminotransferase 86 U/L (6-35); Alkaline Phosphatase 212 U/L (38-126); Anion Gap 8 mmol/L (8-16); Aspartate Amino Transferase 79 U/L (14-36); Bilirubin,Total 0.9 mg/dL (0.2-1.3); Blood Urea Nitrogen 6 mg/dL (7-17); Calcium 9.1 mg/dL (8.4-10.2); Carbon Dioxide 21 mmol/L (22-30); Chloride 106 mmol/L (98-107); Estimated Glomerular Filt Rate > 60; Glucose 95 mg/dL (65-110); Sodium 135 mmol/L (137-145)
[2021-12-11] MEDS: ONDANSETRON INJ 4 MG/2 ML VIAL IV PUSH (21:47)
--- NOTE | 2021-12-11 22:41 | P.PCNOB_ITS ---
OB - Delivery Note Procedure Delivery date: 12/11/21 Procedure: precipitous Intrapartal Events: Placental Abruption (suspected) Induction method: None Delivery augmentation: Pitocin Delivery monitor: External FHT and External Uterine Route of delivery: Episiotomy description: None Laceration Description: Perineal - 2nd Degree Delivery repair: vicryl Specimen: Yes Quantitative Blood Loss (ml): 320 Anesthesia type: Epidural Disposition: Floor Complications: precipitous delivery, suspected abruption just prior to delivery Narrative: The baby delivered precipitously with vomiting less than a minute prior to my arrival. The was placed on the mothers chest and suctioned and stimula emeli. The cord was clamped and cut after 30 seconds. Mother and baby both stable. The placenta was delivered very quickly and with clot covering about 15% of surface. Abruption suspected. Ring forceps and manual exploration of the uterus done to remove retained membranes x2. [place] Baby Date of : 12/11/21 Time of : 22:19 Weeks of gestation at delivery: 40 gender: Female Weight (pounds): 6 Weight (ounces): 11 presentation: vertex Placenta delivery description: Spontaneous and Uterine Exploration (retained membranes) Cord Vessel Description: 3 Vessels score one minute: 8 score five minutes: 9
[2021-12-11] MEDS: OXYTOCIN 30 UNITS/NS 500 ML 30 UNITS/500 ML BAG 125 UNITS IV CONT (23:03)
[2021-12-12] VITALS (11 sets, daily range): BP systolic 101–130; BP diastolic 54–81; PULSE 69–101; RESP 16–18; TEMP 36.2–36.7; O2SAT 97–99; BMI 27.4
[2021-12-12] MEDS: ceFAZolin 2 GM/D5W 50 ML 2 GM/50 ML BAG IVPB (00:26)
[2021-12-12] MEDS: BENZOCAINE 20% AER SPR (*SP) 56 GM CAN 1 SPRAY TOPICAL (01:29)
[2021-12-12] MEDS: WITCH HAZEL 40 PADS 1 PAD TOPICAL (01:29)
[2021-12-12] MEDS: IBUPROFEN 600 MG TABLET PO (01:30)
[2021-12-12 06:25] LABS: Hematocrit 28.9 % (37.0-47.0)
--- NOTE | 2021-12-12 07:26 | WPDANLDPN2 ---
Anes-Prog Note L&D Date/Time: 12/12/21 07:26 Comfortable throughout: labor and delivery Neuraxial method: epidural Epidural/Spinal procedure site: clean & non-tender Neuro status: Neuro function grossly intact. Cardiovascular status: normal Respiratory status: normal Airway patency: baseline Mental status: baseline Post-Op hydration status: normal Vital Signs: Last Vital Signs Temp 36.3 C L 12/12/21 04:05 Pulse 78 12/12/21 04:05 Resp 16 12/12/21 04:05 BP 114/71 12/12/21 04:05 Pulse Ox 100 12/11/21 22:12 O2 Del Method Room Air 12/11/21 19:00 Pain score (VAS): 06/12 I/O: Intake & Output 12/11/21 12/11/21 12/12/21 15:59 23:59 07:59 Intake Total 1000 Output Total 366 Balance 1000 -366 Post-procedural complaints: none Patient feedback: Patient satisfied with anesthetic care.
[2021-12-12 07:50] LABS: Rapid Plasma Reagin Non-Reactive (NonReactive)
--- NOTE | 2021-12-12 07:51 | PM.OBPNVD ---
OB - PN: Subj Subjective Date/time seen: 12/12/21 07:51 Patient comments: no complaints and pain well controlled baby status: doing well [place] feeding status: breast and bottle feeding Narrative: At delivery Trice seemed detached from baby and not wanting to see or hold her. I asked her about this today and she states she was just tired and that she is bonding with baby a little bit. Nursed once and gave bottle once overnight. Did a little skin to skin. Affect still seems flatter than her normal. OB - PN: Obj Data Labs CBC & Chem 7: 12/12/21 06:13 12/11/21 18:48 Labs: Laboratory Results - last 24 hr 12/11/21 12/11/21 12/11/21 18:48 18:48 18:48 WBC 6.1 RBC 4.53 Hgb 10.9 L Hct 34.9 L MCV 77.0 L MCH 24.1 L MCHC 31.2 L RDW 21.4 H Plt Count 264 MPV 10.7 H Immature Gran % (Auto) 0.3 Neut % (Auto) 65.6 Lymph % (Auto) 24.1 [place] % (Auto) 8.0 Eos % (Auto) 1.5 Baso % (Auto) 0.5 Lymph # (Auto) 1.47 [place] # (Auto) 0.5 Eos # (Auto) 0.1 Baso # (Auto) 0.0 Abs Immat Gran (auto) 0.02 Absolute Neuts (auto) 4.0 Absolute Nucleated RBC 0.0 Nucleated RBC % 0.0 Sodium Potassium Chloride Carbon Dioxide Anion Gap BUN Creatinine Estim Creat Clear Calc Estimated GFR Glucose Calcium Total Bilirubin AST ALT Alkaline Phosphatase Total Protein Albumin RPR Non-reactive Blood Type B Positive Antibody Screen Negative 12/11/21 12/12/21 18:48 06:13 WBC RBC Hgb 9.0 L Hct 28.9 L MCV MCH MCHC RDW Plt Count MPV Immature Gran % (Auto) Neut % (Auto) Lymph % (Auto) [place] % (Auto) Eos % (Auto) Baso % (Auto) Lymph # (Auto) [place] # (Auto) Eos # (Auto) Baso # (Auto) Abs Immat Gran (auto) Absolute Neuts (auto) Absolute Nucleated RBC Nucleated RBC % Sodium 135 L Potassium 4.0 Chloride 106 Carbon Dioxide 21 L Anion Gap 8 BUN 6 L Creatinine 0.50 L Estim Creat Clear Calc Not Reportable Estimated GFR > 60 Glucose 95 Calcium 9.1 Total Bilirubin 0.9 AST 79 H ALT 86 H Alkaline Phosphatase 212 H Total Protein 8.0 Albumin 4.0 RPR Blood Type Antibody Screen OB - PN A/P Plan day: 1 Plan: routine care Comments: Encouraged nursing, skin to skin, bonding with baby. Will monitor closely for pp depression. consult today. HOme tomorrow. Time Spent With Patient Time: Total time spent is greater than 50% in coordination of care (as documented) at patient's floor/unit and/or counseling patient: Time with patient: less than 15 minutes Exam Narrative: NAD abdomen soft, nontender, fundus firm below the umbilicus Extremities nontender, 1+ edema
[2021-12-12] MEDS: POLYSACCHARIDE IRON COMPLEX 150 MG CAPSULE PO (09:40)
[2021-12-12] MEDS: DOCUSATE SODIUM 100 MG CAPSULE PO ×2 (10:20→17:07)
[2021-12-12] MEDS: MULTIVIT/MIN/PREN/FOL AC/IRON TABLET 1 TAB PO (10:20)
--- NOTE | 2021-12-12 13:00 | PC.NURSE ---
Support person (Sridhar) voiced concerns to me that he doesn't feel like mom was eating and drinking much, and also refusal of lunch at this time. I seen Trice (mother) ate 100% of breakfast and 240ml of water. She doesn't want lunch at this time. Support person is also worried about baby not feeding well. We attempted to feed baby bottle however, baby only took 1ml of formula. LAcation support in room discussing feeding options with mom, mother very noncommittal regarding wishes about feeding method. Pump and bottle, bottle with formula and breast feeding discussed. Petty Johnson, JAQUELINE assisted father with bottling approximately 6cc of formula. Reports gagging and allowing formula to run from mouth. Will attempt feeding at a later time.
--- NOTE | 2021-12-12 13:00 | PC.NURSE ---
Support person voiced concerns to me that he didn't feel like mom was eating and drinking much, and also refusal of lunch at this time. I seen Trice (mother) ate 100% of breakfast and 240ml of water. She doesn't want lunch at this time. Support person also is worried about baby not feeding well. We attempted to feed baby
--- NOTE | 2021-12-12 13:23 | PC.NURSE ---
[id number] Introductions were made, then consulted with patient to assess needs related to . Mother is in the restroom with a support person. Father of baby is attempting to bottle feed infant without success. Support person states mother had some questions regarding . RN demonstrated waking infant to feed and inquired about how the parents desired to feed their infant. Father of baby voiced that a bottle was fed earlier so mother could get sleep. RN assisted father with bottle feeding waiting on mother to leave the restroom. Infant is a poor slicing machine feeder biting on the nipple, sucks very rarely, demonstrates gagging, and at times lets the formula roll out of her mouth. Mother doesn't want to attempt to latch infant at this time. Encouraged understanding of the benefits of skin to skin (unwrapping infant and placing vertically on her chest), responsive feeding, how to watch for early feeding signs and mother declines practicing at this time and father is concerned about getting cold again. Discussed frequency of feeding on demand about every 8-12 times in 24 hours (every 2-3 hours), milk production, duration of feeding, signs of adequate intake/output and how to record on the feeding sheet. Primary RN Stacia brings a pump and pumping kit into the room. Reviewed the options for feeding their baby and the risks and benefits of choices. Mother desires to pump and feed breast milk with father supplementing with formula until her milk comes in. Breast pump provided by primary RN due to ineffective feeding with not latching or latching with a nipple shield per report from Stacia PARSONS. Instructions given on cleaning, care, usage, that there should be no pain, pumping schedule for milk production, collection, and storage of human milk. Parents are encouraged to record pumping schedule on the feeding sheet. Patient was assessed for correct placement, flange size, to pump for comfort and nipple stretching/stimulation for adequate milk production every 3 hours (8 times in 24 hours). Mother voiced understanding of the education shared along with mom and baby guide for additional resource information. Education was reviewed more than once and patient, father of baby and support person given an opportunity to ask questions. Resources used to facilitate learning were used with the mom and baby guide. Reported to the primary RN that there are concerns of not bottle feeding well and the need for education to be reinforced. Mother does not want to attempt to breastfeed at this time and states maybe later . Pumping was encouraged due to ineffective feedings and mother did pump for milk production stimulation.
--- NOTE | 2021-12-12 15:14 | PC.NURSE ---
Addendum entered by Yuki Singh RN 12/12/21 18:25: Infant was warmed under radiant warmer and removed at 1000 (not 1130), 's temperature was taken again at 1130 and 1230 to insure temp remained stable. Original Note: This medical technical writer (Luna Singh RN) met mother at 0630 this morning, mother asking appropriate questions regarding staff and related story to me. Expresses being very tired as she has been unable to sleep due to labor pains. Discussed plan of care and morning activities with mother and encouraged her to sleep after eating breakfast. Father states unable to get baby to drink from bottle of formula. RN fed baby 18 cc of formula. Baby noted to be gaggy and have a disorganized suck pattern allowing some of formula to dribble form mouth. assured father that some babies need time to learn the suck swallow reflex. Mother up to bathroom with assistance from her boyfriend. RN in room, voided qs. returned to bed. Mother's physician, Dr. Gill examined and spoke with patient in room. Veterans' Coordinator examined baby in nursery, spoke with both parents in room. At approximately 1130 infant temperature was noted to be 97.1 axillary and taken to nursery and placed under radiant warmer, warmed to 99.2 axillary. noted to be sucking finger vigorously, infant dressed and returned to room for feeding. At this time maternal grandmother was in room and father of baby attempted to bottle feed baby at mother's request. Father of baby able to get baby to take 1cc of formula, but did not alert staff. Petty Johnson RN () in room to discuss and assist with feeding. See notes. [id number] this medical technical writer discussed concerns with mother and grandmother, regarding need to determine how mother will precede with feeding . Mother again non committal regarding her wishes. RN discussed with mother and grandmother concerns of depression due to rapid and perhaps traumatic delivery and the procedures taking place afterward to remove retained products of conception. Encouraged patient and grandmother to review handout and contact MD if any signs of depression. mother states that relationship between her and father of baby is good. the couple will be living with pt's mother for a few weeks before moving in together. assisted pt with putting baby to breast in foot ball hold with nipple shield. Patient remains with extremely flat affect and answers questions posed to her with no eye contact and as minimal words as possible. Encouraged mother to feed baby and then to get uninterrupted sleep by allowing either grandmother to watch baby or send baby out to nursery staff. pt agrees.
--- NOTE | 2021-12-12 17:57 | PC.NURSE ---
Addendum entered by Yuki Singh RN 12/12/21 18:27: below note written by Nicho Singh RN Original Note: Spoke with Dr Gill regarding pt's continued flat affect and possible bonding issues/post depression. Pt took at two hour nap and states feeling better and refuses offers of assistance with baby to allow for further rest. Maternal grandmother (of ) remains in room and bottle fed baby 10cc of formula after patient breastfed for 30 minutes but reports no colostrum visualized in nipple shield. Mother was visualized holding baby but without much interaction with baby. Pt given EPDS form and ask to complete it as ordered by Dr. Gill. Explanation given that this form will allow us to determine a baseline of how patient is feeling currently and will be repeated at her follow up visit here at the hospital.
--- NOTE | 2021-12-12 21:15 | PC.NURSE ---
Addendum entered by Chiqui Whittington RN 12/12/21 21:40: Clot with tissue weighed 83 gms. Original Note: Called to room for blood clot that patient was unable to remove while in bathroom. Clot with tissue manually removed from vagina. No c/o discomfort voiced. Continue to monitor.
[2021-12-12 21:37] LABS: Basophils Percent Auto 0.1 % (0.2-1.2); Eosinophils Absolute Auto 0.1 K/mm3 (0-0.3); Eosinophils Percent Auto 1.5 % (0-4.4); Hematocrit 29.8 % (37.0-47.0); Hemoglobin 9.5 g/dL (12.0-15.0); Immature Granulocyte Absolute 0.03 K/mm3 (0.00-0.031); Immature Granulocyte Percent A 0.4 % (0-0.5); Lymphocytes Absolute Auto 2.24 K/mm3 (0.9-3.2); Lymphocytes Percent Auto 30.4 % (18.3-44.2); Mean Corpuscular HGB Conc 31.9 g/dl (32-36); Mean Corpuscular Hemoglobin 24.4 pg (26-34); Mean Corpuscular Volume 76.6 fl (80-100); Mean Platelet Volume 10.7 fl (7.4-10.4); Monocytes Absolute Auto 0.7 K/mm3 (0.1-0.6); Monocytes Percent Auto 9.5 % (2.6-8.5); Neutrophils Absolute Auto 4.3 K/mm3 (1.3-6.7); Neutrophils Percent Auto 58.1 % (45.5-73.1); Platelet Count Result 218 k/mm3 (150-375); Red Blood Count 3.89 M/mm3 (4.2-5.4); Red Cell Distribution Width 21.4 % (11.5-14.5); White Blood Count 7.4 K/mm3 (4.5-10.0)
[2021-12-12 21:49] LABS: Ammonia < 9 umol/L (9-30)
[2021-12-12 21:58] LABS: Alanine Aminotransferase 89 U/L (6-35); Albumin Level 3.5 g/dL (3.5-5.1); Alkaline Phosphatase 160 U/L (38-126); Anion Gap 4 mmol/L (8-16); Aspartate Amino Transferase 92 U/L (14-36); Bilirubin,Total 0.6 mg/dL (0.2-1.3); Blood Urea Nitrogen 4 mg/dL (7-17); Calcium 8.8 mg/dL (8.4-10.2); Carbon Dioxide 24 mmol/L (22-30); Chloride 106 mmol/L (98-107); Estimated CRCL calculation 125 ml/min; Estimated Glomerular Filt Rate > 60; Glucose 97 mg/dL (65-110); Lactate Dehydrogenase 512 U/L (313-618); Sodium 134 mmol/L (137-145); Uric Acid 3.4 mg/dL (2.5-7.5)
[2021-12-13] MEDS: ACETAMINOPHEN 325 MG TABLET 650 MG PO ×2 (00:33→10:48)
[2021-12-13] MEDS: WITCH HAZEL 40 PADS 1 PAD TOPICAL (00:33)
[2021-12-13] MEDS: IBUPROFEN 600 MG TABLET PO ×2 (00:34→10:49)
--- NOTE | 2021-12-13 07:37 | PM.OBPNVD ---
OB - PN: Subj Subjective Date/time seen: 12/13/21 07:37 Interval history: Nurses continue to have concerns over her bonding with baby. Yesterday flat affect, minimally responsive, resistant to hold or feed baby. She states she was just tired and that she feels like herself, denies depression or anxiety, and feels she is bonding with the baby. Denies pain. Bleeding fine, ambulating and voiding. Patient comments: no complaints and pain well controlled [place] baby status: doing well [place] feeding status: breast and bottle feeding OB - PN: Obj Data Labs CBC & Chem 7: 12/12/21 21:19 12/12/21 21:19 Labs: Laboratory Results - last 24 hr 12/11/21 12/12/21 12/12/21 18:48 21:19 21:19 WBC 7.4 RBC 3.89 L Hgb 9.5 L Hct 29.8 L MCV 76.6 L MCH 24.4 L MCHC 31.9 L RDW 21.4 H Plt Count 218 MPV 10.7 H Immature Gran % (Auto) 0.4 Neut % (Auto) 58.1 Lymph % (Auto) 30.4 [place] % (Auto) 9.5 H Eos % (Auto) 1.5 Baso % (Auto) 0.1 L Lymph # (Auto) 2.24 [place] # (Auto) 0.7 H Eos # (Auto) 0.1 Baso # (Auto) 0.0 Abs Immat Gran (auto) 0.03 Absolute Neuts (auto) 4.3 Absolute Nucleated RBC 0.0 Nucleated RBC % 0.0 Sodium 134 L Potassium 4.0 Chloride 106 Carbon Dioxide 24 Anion Gap 4 L BUN 4 L Creatinine 0.60 L Estim Creat Clear Calc 125 Estimated GFR > 60 Glucose 97 Uric Acid 3.4 Calcium 8.8 Total Bilirubin 0.6 AST 92 H ALT 89 H Alkaline Phosphatase 160 H Ammonia Lactate Dehydrogenase 512 Total Protein 7.0 Albumin 3.5 RPR Non-reactive 12/12/21 21:19 WBC RBC Hgb Hct MCV MCH MCHC RDW Plt Count MPV Immature Gran % (Auto) Neut % (Auto) Lymph % (Auto) [place] % (Auto) Eos % (Auto) Baso % (Auto) Lymph # (Auto) [place] # (Auto) Eos # (Auto) Baso # (Auto) Abs Immat Gran (auto) Absolute Neuts (auto) Absolute Nucleated RBC Nucleated RBC % Sodium Potassium Chloride Carbon Dioxide Anion Gap BUN Creatinine Estim Creat Clear Calc Estimated GFR Glucose Uric Acid Calcium Total Bilirubin AST ALT Alkaline Phosphatase Ammonia < 9 L Lactate Dehydrogenase Total Protein Albumin RPR OB - PN A/P Plan day: 2 Plan: routine care and discharge home Comments: SW consult today re bonding Had a long discussion with pt and SO regarding our concerns over bonding and possible depression. She does not respond with any emotion, but states she is not depressed, feels like herself, and feels comfortable taking care of baby. DC instructions given, DC home after SW consult pp depression/anxiety precautions given. FU with me next week. Time Spent With Patient Time: Total time spent is greater than 50% in coordination of care (as documented) at patient's floor/unit and/or counseling patient: Time with patient: less than 15 minutes Exam Narrative: NAD, affect flat but improved from last two days abdomen soft, nontender, fundus firm below the umbilicus Extremities nontender, 1+ edema
--- NOTE | 2021-12-13 07:44 | PM.DS ---
DS: Admitting Diagnosis Discharge Date 12/13/21 Admitting Diagnosis term labor DS: Discharge Diagnosis Discharge Diagnosis (1) , delivered: Code(s): O80 - Encounter for full-term uncomplicated delivery Status: Acute DS: Summary Hospital Course Hospital Course: Trice was admitted in active labor at term. She had a precipitous vaginal delivery. Her course was uncomplicated except by flat affect and concern for bonding with baby. She denied depression. She has had mildly elevated LFTs prior, and they were just slightly increased. Further HARDING ruled out AFLP. SW saw the patient and determined she was stable for DC with baby. Status at Discharge Functional status at discharge: independent ambulation Time Spent with Patient Time attestation: Total time spent providing and/or coordinating discharge services: Exam Narrative: NAD, flat affect abdomen soft, appropriately tender Ext non tender, 1+ edema DS: Data Data Completed and Pending Pending studies at discharge: Pending at discharge 12/11/21 22:23 Surgical [PTH] Routine Labs on day of discharge: Labs from last 24 hours 12/12/21 12/12/21 12/12/21 21:19 21:19 21:19 WBC 7.4 RBC 3.89 L Hgb 9.5 L Hct 29.8 L MCV 76.6 L MCH 24.4 L MCHC 31.9 L RDW 21.4 H Plt Count 218 MPV 10.7 H Immature Gran % (Auto) 0.4 Neut % (Auto) 58.1 Lymph % (Auto) 30.4 [place] % (Auto) 9.5 H Eos % (Auto) 1.5 Baso % (Auto) 0.1 L Lymph # (Auto) 2.24 [place] # (Auto) 0.7 H Eos # (Auto) 0.1 Baso # (Auto) 0.0 Abs Immat Gran (auto) 0.03 Absolute Neuts (auto) 4.3 Absolute Nucleated RBC 0.0 Nucleated RBC % 0.0 Sodium 134 L Potassium 4.0 Chloride 106 Carbon Dioxide 24 Anion Gap 4 L BUN 4 L Creatinine 0.60 L Estim Creat Clear Calc 125 Estimated GFR > 60 Glucose 97 Uric Acid 3.4 Calcium 8.8 Total Bilirubin 0.6 AST 92 H ALT 89 H Alkaline Phosphatase 160 H Ammonia < 9 L Lactate Dehydrogenase 512 Total Protein 7.0 Albumin 3.5 RPR 12/11/21 18:48 WBC RBC Hgb Hct MCV MCH MCHC RDW Plt Count MPV Immature Gran % (Auto) Neut % (Auto) Lymph % (Auto) [place] % (Auto) Eos % (Auto) Baso % (Auto) Lymph # (Auto) [place] # (Auto) Eos # (Auto) Baso # (Auto) Abs Immat Gran (auto) Absolute Neuts (auto) Absolute Nucleated RBC Nucleated RBC % Sodium Potassium Chloride Carbon Dioxide Anion Gap BUN Creatinine Estim Creat Clear Calc Estimated GFR Glucose Uric Acid Calcium Total Bilirubin AST ALT Alkaline Phosphatase Ammonia Lactate Dehydrogenase Total Protein Albumin RPR Non-reactive Discharge Plan Discharge Attending physician on discharge: Dionna Gill Discharging Clinician: Dionna Gill Anticipated Discharge Date/Time: 12/13/21 16:00 Patient Disposition: Home, Self-Care Activity: pelvic rest Diet: regular Stand Alone Forms: General Discharge Information Follow-up/Referrals: Dionna Gill MD [Physician] - 1 Week Discharge Medications: Continued prenat.vits,pam,[id number] Tablet 1 tablet PO DAILY Date of admission: 12/11/21 17:29 Primary Care Provider: PHYSICIAN,SSIS ETL DEVELOPER Admitting Provider: Dionna Gill Attending physician on admission: Dionna Gill Condition: Stable
[2021-12-13 07:45] VITALS: BP 107/72; PULSE 77; RESP 16; TEMP 36.3; O2SAT 100
--- NOTE | 2021-12-13 08:47 | PC.NURSE ---
0825 Infant taken to room bracelet numbers checked. Informed pt that when the Pedi comes the infant will need to go back to the nursery for the assessment. MOB asked if the Pedi could see in the room. This RN stated will ask Pedi. Instructed for pt to view the discharge video. She V/U'd and asked what time will discharge be? This RN stated after [address] Gill. Pt asked why so late, that is not what she told us? Informed pt that Dr. Gill would like for her and FOB to pretend they are at home and do all of the care for and herself. Then we are suppose to call Dr. Gill @ 1600 and give her a report on the day and how everything went. The pt V/U'd
[2021-12-13] MEDS: MULTIVIT/MIN/PREN/FOL AC/IRON TABLET 1 TAB PO (10:50)
[2021-12-13] MEDS: DOCUSATE SODIUM 100 MG CAPSULE PO (10:51)
--- NOTE | 2021-12-13 14:00 | PC.NURSE ---
1255 Kaveh Johnson RN stated she feels like the pt is doing much better. While she was giving pumping instructions pt was engaging in the conversation. She also told Petty that when she gets overwhelmed she tends to shut down. And that her delivery was not what she expected and she did get overwhelmed and she shut down. Pt stated that she is feeling better today after some rest.
--- NOTE | 2021-12-13 15:30 | PC.NURSE ---
[id number] Consulted with patient to assess needs related to and milk production related to stimulating with either effective or pumping every 3 hours. Mother led conversation with her experience with feeding baby so far which has been minimal , with no consistency with pumping, and states she was encouraged to get sleep . Mother is encouraged to work with her . Reviewed milk production and working with , how to protect the nipples with an optimal deep latch, good positioning, and frequency to stimulate the supply and demand milk supply. Reinforced and encouraged understanding the benefits of skin to skin, responding to feeding cues, frequencies of feeding 8-12 times in 24 hours (approximately 2-3 hours), duration of feedings, milk production, intake/output feeding sheet and signs of adequate intake encouraging swallowing at the breast. RN shows feeding cues to parents, offers assistance to help with breastfeed and mother agrees to attempt. Reviewed positioning and alignment, supporting breast, off-centered (asymmetrical latch) and leading with the chin with big open wide gape. Mother has a moment of sighing with long staring at the father of the baby . RN clarified with mother that she indeed would like to breastfeed her infant. Mother doesn't communicate much and her partner gently shares mother's thoughts as he perceives them. When RN asked mother if she would like to breastfeed she states I want to do whatever is best . RN encouraged patient to understand there are options of feeding her infant, that I am here to assist with her plan to feed her infant not make her do something she doesn't want to do. Father of baby states it is a difference of communication. He says mother wants assistance with and mother nods in a yes motion. After reinforcing education on positioning, optimal latching, and holding/moving infant to the breast, then latched optimally to the right breast in football position. Education given to mother of how to visualize suck/swallow ratios and drinking at the breast with father of baby actively involved in what to look for and help mother with. was able to maintain latch without discomfort to mother. After 15 min, RN demonstrated detaching infant from the breast, reinforced skin to skin, then assisted mother with infant to the left breast to prepare for latching. Reviewed waiting for infant to open with a wide open gape, positioning, holding , moving infant to the breast, assessing if there is pain and watching for swallowing. Mother grimaces, RN assesses for pain, mother denies pain and states I am trying to listen . Nipple care reviewed with optimal latch and good positioning. latched effective to the left breast using football positioning. Breast pump provided yesterday due to ineffective feedings. Reviewed instructions given on cleaning, care, usage, that there should be no pain, pumping schedule for milk production, collection, and storage of human milk. Parents are encouraged to record pumping schedule on the feeding sheet. Patient was assessed for correct placement, flange size, to pump for comfort and nipple stretching/stimulation for adequate milk production every 3 hours (8 times in 24 hours). Mother voiced understanding of the education shared along with mom and baby guide for additional resource information. Reported to the primary RN. [id number] Encouraged skin to skin with and reviewed stimulating with massage, position change and talking. Primary RN is present. [id number] Consulted with patient to assess needs related to . Parents were encouraged to stimulate to wake and breastfeed. Reviewed working with infant, breast, nipples and how to protect the nipples with an optimal deep latch, good positioning, and good hand washing. Encouraged understanding the benefits of skin to skin, responding to feeding cues, f
--- NOTE | 2021-12-13 15:56 | PCCCNOTE ---
Care Coordination Consult: Met with pt. and PRANAV Waller today. Pt. and Lauriiman report this is their first child. They have all necessary equipment at home to assist in care including a car seat, bassinet, crib, pack n play, clothing, bottles etc. She has supportive family including her mother and Sridhar's family. Per pt. she has already applied for WIC and plans to follow up at the [place] office for further services. Did provide resources to pt. Pt. reports that her birthing experience was unexpected and very traumatic, support provided. Pt. reports because of this she was very tired and not engaged with RN or baby care yesterday. Pt. reports she feels better today. Has worked with the nurse a couple of times today and feels like she has all necessary information to pump at home. Has a breast pump in her room that she will take home with her. Pt. reports she is aware of pt. and baby's follow up appointments including the ones scheduled for tomorrow and reports she will be able to get to these appointments. RN reports they did complete an EPDS test on pt. and she scored a 4 which is below the risk level for post partem if pt. answered correctly. Irlandamelia is very supportive and will assist pt. with any needs at discharge. They are working to move currently into their new home in [place] and they plan to return to this home at discharge. Pt. was provided a sammi basket to add to the baby supplies she has already at home. Pt.'s mother will come this afternoon to participate in the discharge and will bring the car seat. Pt. denies any further needs. Reports she will discuss with her OB or [facility] if she has any further questions/concerns.
--- NOTE | 2021-12-13 19:59 | PC.NURSE ---
1750 Patient viewed the discharge video Mother & Baby Care, The First Two Weeks . Patient was given the opportunity and encouraged to ask questions. Patient verbalized understanding of information shared and has been given the mother/baby guide for home reference.
[2021-12-14 09:58] VITALS: BP 106/63; PULSE 92; RESP 20; TEMP 36.8; O2SAT 99
== END 2021-12-13 18:26 | disposition home or self-care (01) | DRG 805 ==
LOC: ANHLDR 17:37 → ANHOB2 12-12 04:14
PROVIDERS: Admitting Provider Obstetrics & Gynecology; Visit Provider Obstetrics & Gynecology
DX: O43.113 Circumvallate placenta, third trimester (principal); O45.93 Premature separation of placenta, unspecified, third trimester; Z37.0 Single live birth; O99.02 Anemia complicating childbirth; D64.9 Anemia, unspecified; O70.1 Second degree perineal laceration during delivery; O62.3 Precipitate labor; O73.1 Retained portions of placenta and membranes, without hemorrhage; O76 Abnormality in fetal heart rate and rhythm complicating labor and delivery; R79.89 Other specified abnormal findings of blood chemistry; Z3A.40 40 weeks gestation of pregnancy
CPT/HCPCS: 36415; 80053; 82140; 83615; 84550; 85014; 85018; 85025; 86592; 86850; 86900; 86901; 88307; A9270; J0690; J2405; J2590; J2795; J7120